=== PATIENT | male | born 1985 | race Caucasian/White ===

== ENCOUNTER 2018-05-11 13:25 | Emergency (ER) | payer OTHER ==
[2018-05-11 13:31] VITALS: TEMP 97; BMI 29.9
--- NOTE | 2018-05-11 13:42 | PDOC ---
Attending Attestation - Resident Resident Name: Heriberto Fraire - HPI HPI: 05/11/18 15:23 pt presents to the ED intoxicated, requesting rehab. Denies fever, but does complain of vomiting and mild epigastric pain consistent with prior episodes of pancreatitis. Patient states that he drinks "one gallon of beer" per day, and that his last drink was immediately prior to arrival. Patient is alert and oriented x 3. - Physicial Exam PE: 05/11/18 15:26 Agree with resident exam. Patient is intoxicated but is alert and oriented x 3 and in no acute distress. Abdomen is soft, non tender and non distended. - Medical Decision Making 05/11/18 15:26 Pt presents to the ED intoxicated requesting rehab. Labs show no evidence of pancreatitis. Patient has been accepted to [facility] for rehab. Will discharge to [facility].
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
[2018-05-11 14:51] LABS: BASO % 0.8 % (0-2.0); EOS % 0.5 % (0-4.5); HEMOGLOBIN 13.9 GM/dL (11.7-16.9); LYMPH % 16.4 % (8-40); MCH 29.1 pg (25.7-33.7); MCHC 32.4 g/dl (32.0-35.9); MONO % 9.4 % (3.8-10.2); NEUT % 72.9 % (42.8-82.8); PLATELET COUNT 236 K/MM3 (134-434); RBC 4.78 M/mm3 (4.00-5.60); RDW 15.3 % (11.9-15.9); WHITE BLOOD COUNT 4.4 K/mm3 (4.0-10.0)
[2018-05-11 15:19] LABS: ALBUMIN 4.1 g/dl (3.4-5.0); ALK PHOS 68 U/L (45-117); ANION GAP 8 MMOL/L (8-16); BILIRUBIN,TOTAL 0.2 mg/dL (0.2-1); BLOOD UREA NITROGEN 6 mg/dL (7-18); CALCIUM 8.9 mg/dL (8.5-10.1); CHLORIDE 104 mmol/L (98-107); CO2 26 mmol/L (21-32); CREATININE 0.7 mg/dL (0.55-1.3); GLUCOSE,RANDOM 114 mg/dL (74-106); LIPASE 121 U/L (73-393); PHOSPHOROUS 3.3 mg/dL (2.5-4.9); POTASSIUM 4.4 mmol/L (3.5-5.1); SGOT/AST 41 U/L (15-37); SGPT/ALT 42 U/L (13-61); SODIUM 137 mmol/L (136-145); TOT PROT 7.6 g/dl (6.4-8.2)
[2018-05-11 15:49] VITALS: BP 125/69; PULSE 98
--- NOTE | 2018-05-11 16:27 | EKG ---
Test Reason : Blood Pressure : / mmHG Vent. Rate : 082 BPM Atrial Rate : 082 BPM P-R Int : 158 ms QRS Dur : 084 ms QT Int : 366 ms P-R-T Axes : 062 036 043 degrees QTc Int : 427 ms NORMAL SINUS RHYTHM NORMAL ECG NO PREVIOUS ECGS AVAILABLE Confirmed by BERTO NARAYAN MD ([id number]) on 05/11/2018 4:27:09 PM Referred By: Confirmed By:BERTO NARAYAN MD
== END 2018-05-11 16:57 | disposition home or self-care (01) ==
LOC: JER 13:25
DX: F10.220 Alcohol dependence with intoxication, uncomplicated (principal); F17.210 Nicotine dependence, cigarettes, uncomplicated; F12.10 Cannabis abuse, uncomplicated; J45.909 Unspecified asthma, uncomplicated
CPT/HCPCS: 36415; 80053; 83690; 84100; 85025; 93005; 93010; 99281-25

== ENCOUNTER 2022-12-21 16:29 | Inpatient (IN) | payer OTHER ==
[2022-12-21 17:34] VITALS: BMI 25.5
[2022-12-21] MEDS ORDERED: BENZOCAINE/MENTHOL (CHLORASEPTIC ) LOZENGE MM PRN (22:09)
[2022-12-21] MEDS ORDERED: BISMUTH SUBSALICYLATE 524 MG/30 ML PO PRN (22:09)
[2022-12-21] MEDS ORDERED: IBUPROFEN 400 MG TABLET (FP) PO PRN (22:09)
[2022-12-21] MEDS ORDERED: LOPERAMIDE HCL 2 MG CAPSULE PO PRN (22:09)
[2022-12-21] MEDS ORDERED: ONDANSETRON *ODT* 4 MG TABLET SL PRN (22:09)
[2022-12-21] MEDS ORDERED: DICYCLOMINE HCL 10 MG CAPSULE PO PRN (22:09)
[2022-12-21] MEDS ORDERED: NALOXONE HCL 0.4 MG/ML VIAL IM PRN (22:09)
[2022-12-21] MEDS ORDERED: NALOXONE HCL (KLOXXADO) 8 MG SPRAY NS PRN (22:09)
[2022-12-21] MEDS ORDERED: MAG HYDROX/AL HYDROX/SIMETH 30 ML UNIT-DOSE CUP PO PRN (22:09)
[2022-12-21] MEDS ORDERED: MAGNESIUM HYDROX 2400MG/30ML ORAL SUSPENSION 30 ML CUP PO PRN (22:09)
[2022-12-21] MEDS ORDERED: BENZONATATE 200 MG CAPSULE PO PRN (22:09)
[2022-12-21] MEDS ORDERED: guaiFENesin 600 MG TABLET.ER (FP) PO PRN (22:09)
[2022-12-21] MEDS ORDERED: POLYETHYLENE GLYCOL (HEALTHYLAX) 3350 17 GM PACKET PO PRN (22:09)
[2022-12-21] MEDS ORDERED: chlordiazePOXIDE HCL 25 MG CAPSULE PO PRN (22:09)
[2022-12-21] MEDS ORDERED: ALBUTEROL SO4 HFA INHALER IH PRN (22:14)
[2022-12-21] MEDS: chlordiazePOXIDE HCL 25 MG CAPSULE PO SCH (23:00)
[2022-12-22] MEDS: chlordiazePOXIDE HCL 25 MG CAPSULE PO SCH ×4 (05:57→22:20)
[2022-12-22] MEDS ORDERED: buPROPion HCL 100 MG TABLET PO SCH (10:00)
[2022-12-22] MEDS: PRENATAL VITAMINS W/ FOLIC ACID TABLET (FP) PO SCH (10:12)
[2022-12-22] MEDS: NICOTINE 21 MG/24 HOURS TOPICAL PATCH TD SCH (10:13)
[2022-12-22] MEDS: buPROPion HCL 100 MG TABLET PO SCH ×2 (12:46→17:43)
[2022-12-22] MEDS: THIAMINE HCL 100 MG TABLET (FP) PO SCH (22:18)
[2022-12-22] MEDS: MELATONIN 5 MG TABLETS PO SCH (22:18)
[2022-12-22] MEDS: hydrOXYzine PAMOATE 25 MG CAPSULE (FP) PO PRN (22:19)
[2022-12-22] MEDS: METHOCARBAMOL 500 MG TABLET PO PRN (22:19)
[2022-12-22] MEDS: ATORVASTATIN CA 40 MG TABLET (FP) PO SCH (22:19)
[2022-12-23] MEDS: chlordiazePOXIDE HCL 25 MG CAPSULE PO SCH ×4 (05:54→22:36)
[2022-12-23] MEDS: NICOTINE 21 MG/24 HOURS TOPICAL PATCH TD SCH (10:39)
[2022-12-23] MEDS: buPROPion HCL 100 MG TABLET PO SCH ×2 (10:39→17:46)
[2022-12-23] MEDS: PRENATAL VITAMINS W/ FOLIC ACID TABLET (FP) PO SCH (10:39)
[2022-12-23] MEDS ORDERED: P-EPHED 60MG/TRIPROLIDI 2.5MG TABLET PO PRN (11:32)
[2022-12-23 12:09] LABS: HEMATOCRIT 37.2 % (35.4-49); HEMOGLOBIN 12.2 GM/dL (11.7-16.9); MCH 31.4 pg (25.7-33.7); MCHC 32.7 g/dl (32.0-35.9); MEAN CELL VOLUME 96.2 fl (80-96); MEAN PLT VOLUME 8.6 fl (7.5-11.1); PLATELET COUNT 163 10^3/uL (134-434); RBC 3.87 M/mm3 (4.00-5.60); RDW 12.8 % (11.9-15.9); WHITE BLOOD COUNT 5.6 K/mm3 (4.0-10.0)
[2022-12-23 12:28] LABS: CALCIUM 8.3 mg/dL (8.5-10.1)
[2022-12-23 12:29] LABS: ALBUMIN 3.2 g/dl (3.4-5.0); BLOOD UREA NITROGEN 9.6 mg/dL (7-18)
[2022-12-23 12:32] LABS: CREATININE 0.7 mg/dL (0.55-1.3)
[2022-12-23 12:33] LABS: TOT PROT 6.2 g/dl (6.4-8.2)
[2022-12-23 12:34] LABS: BILIRUBIN,TOTAL 0.4 mg/dL (0.2-1)
[2022-12-23] MEDS: FENOFIBRIC ACID 135 MG CAP PO SCH (17:00)
[2022-12-23] MEDS: ACETAMINOPHEN 325 MG TABLET (FP) PO PRN (19:05)
[2022-12-23] MEDS: THIAMINE HCL 100 MG TABLET (FP) PO SCH (22:36)
[2022-12-23] MEDS: ATORVASTATIN CA 40 MG TABLET (FP) PO SCH (22:36)
[2022-12-23] MEDS: MELATONIN 5 MG TABLETS PO SCH (22:36)
[2022-12-24] MEDS ORDERED: chlordiazePOXIDE HCL 10 MG CAPSULE PO PRN
[2022-12-24] MEDS: METHOCARBAMOL 500 MG TABLET PO PRN ×2 (00:04→21:43)
[2022-12-24] MEDS: chlordiazePOXIDE HCL 10 MG CAPSULE PO SCH ×4 (05:07→22:09)
[2022-12-24] MEDS: IBUPROFEN 600 MG TABLET (FP) PO PRN ×2 (05:08→17:02)
[2022-12-24] MEDS: PRENATAL VITAMINS W/ FOLIC ACID TABLET (FP) PO SCH (10:21)
[2022-12-24] MEDS: FENOFIBRIC ACID 135 MG CAP PO SCH (10:21)
[2022-12-24] MEDS: NICOTINE 21 MG/24 HOURS TOPICAL PATCH TD SCH (10:21)
[2022-12-24] MEDS: buPROPion HCL 100 MG TABLET PO SCH ×2 (10:22→17:02)
[2022-12-24] MEDS: hydrOXYzine PAMOATE 25 MG CAPSULE (FP) PO PRN (17:02)
[2022-12-24] MEDS: MELATONIN 5 MG TABLETS PO SCH (21:42)
[2022-12-24] MEDS: ATORVASTATIN CA 40 MG TABLET (FP) PO SCH (21:42)
[2022-12-24] MEDS: THIAMINE HCL 100 MG TABLET (FP) PO SCH (21:43)
[2022-12-24] MEDS: ACETAMINOPHEN 325 MG TABLET (FP) PO PRN (21:44)
[2022-12-25] MEDS: chlordiazePOXIDE HCL 10 MG CAPSULE PO SCH ×2 (05:52→17:11)
[2022-12-25] MEDS: PRENATAL VITAMINS W/ FOLIC ACID TABLET (FP) PO SCH (10:28)
[2022-12-25] MEDS: NICOTINE 21 MG/24 HOURS TOPICAL PATCH TD SCH (10:28)
[2022-12-25] MEDS: buPROPion HCL 100 MG TABLET PO SCH ×2 (10:28→17:11)
[2022-12-25] MEDS: FENOFIBRIC ACID 135 MG CAP PO SCH (10:28)
[2022-12-25] MEDS: METHOCARBAMOL 500 MG TABLET PO PRN (10:52)
[2022-12-25] MEDS: ACETAMINOPHEN 325 MG TABLET (FP) PO PRN ×2 (10:52→23:55)
[2022-12-25] MEDS: hydrOXYzine PAMOATE 25 MG CAPSULE (FP) PO PRN (10:52)
[2022-12-25] MEDS: THIAMINE HCL 100 MG TABLET (FP) PO SCH (22:22)
[2022-12-25] MEDS: ATORVASTATIN CA 40 MG TABLET (FP) PO SCH (22:22)
[2022-12-25] MEDS: MELATONIN 5 MG TABLETS PO SCH (22:22)
[2022-12-26] MEDS ORDERED: chlordiazePOXIDE HCL 10 MG CAPSULE PO ONE (05:00)
[2022-12-26] MEDS: METHOCARBAMOL 500 MG TABLET PO PRN (05:42)
[2022-12-26] MEDS: ACETAMINOPHEN 325 MG TABLET (FP) PO PRN (05:42)
[2022-12-26] MEDS: buPROPion HCL 100 MG TABLET PO SCH (11:00)
[2022-12-26] MEDS: NICOTINE 21 MG/24 HOURS TOPICAL PATCH TD SCH (11:00)
[2022-12-26] MEDS: PRENATAL VITAMINS W/ FOLIC ACID TABLET (FP) PO SCH (11:00)
[2022-12-26] MEDS: FENOFIBRIC ACID 135 MG CAP PO SCH (11:00)
[2022-12-26 13:27] VITALS: BP 107/63; PULSE 84; RESP 20; TEMP 97.9
== END 2022-12-26 16:10 | disposition other institution (70) | DRG 773 ==
LOC: YASAS 16:29 → Y3N 22:23
PROVIDERS: ADMIT Allergy & Immunology; ATTEND Allergy & Immunology
PROC: HZ2ZZZZ Detoxification Services for Substance Abuse Treatment (ICD-10-PCS; principal; 2022-12-21)
DX: F11.23 Opioid dependence with withdrawal (principal); F10.230 Alcohol dependence with withdrawal, uncomplicated; F17.210 Nicotine dependence, cigarettes, uncomplicated; F41.9 Anxiety disorder, unspecified; F32.A Depression, unspecified; F43.10 Post-traumatic stress disorder, unspecified; U07.1 COVID-19; E78.00 Pure hypercholesterolemia, unspecified; J45.30 Mild persistent asthma, uncomplicated; Z86.59 Personal history of other mental and behavioral disorders; Z87.19 Personal history of other diseases of the digestive system
CPT/HCPCS: 0241U-QW; 36415; 80053; 85027; 86780; 87635; 93005; 93010

== ENCOUNTER 2023-01-15 10:06 | Inpatient (IN) | payer OTHER ==
[2023-01-15 10:27] VITALS: BMI 27.7
[2023-01-15] MEDS ORDERED: POLYETHYLENE GLYCOL (HEALTHYLAX) 3350 17 GM PACKET PO PRN (10:54)
[2023-01-15] MEDS ORDERED: BENZOCAINE/MENTHOL (CHLORASEPTIC ) LOZENGE MM PRN (10:54)
[2023-01-15] MEDS ORDERED: NALOXONE HCL 0.4 MG/ML VIAL IM PRN (10:54)
[2023-01-15] MEDS ORDERED: MAGNESIUM HYDROX 2400MG/30ML ORAL SUSPENSION 30 ML CUP PO PRN (10:54)
[2023-01-15] MEDS ORDERED: NALOXONE HCL (KLOXXADO) 8 MG SPRAY NS PRN (10:54)
[2023-01-15] MEDS ORDERED: BENZONATATE 200 MG CAPSULE PO PRN (10:54)
[2023-01-15] MEDS ORDERED: NICOTINE POLACRILEX 2 MG GUM BUC PRN (10:54)
[2023-01-15] MEDS ORDERED: LOPERAMIDE HCL 2 MG CAPSULE PO PRN (10:54)
[2023-01-15] MEDS ORDERED: ONDANSETRON *ODT* 4 MG TABLET SL PRN (10:54)
[2023-01-15] MEDS ORDERED: BISMUTH SUBSALICYLATE 524 MG/30 ML PO PRN (10:54)
[2023-01-15] MEDS ORDERED: DICYCLOMINE HCL 10 MG CAPSULE PO PRN (10:54)
[2023-01-15] MEDS ORDERED: guaiFENesin 600 MG TABLET.ER (FP) PO PRN (10:54)
[2023-01-15] MEDS ORDERED: MAG HYDROX/AL HYDROX/SIMETH 30 ML UNIT-DOSE CUP PO PRN (10:54)
[2023-01-15] MEDS ORDERED: chlordiazePOXIDE HCL 25 MG CAPSULE PO PRN (11:00)
[2023-01-15] MEDS ORDERED: ONDANSETRON *ODT* 4 MG TABLET ONE (11:17)
[2023-01-15] MEDS: chlordiazePOXIDE HCL 25 MG CAPSULE PO SCH ×3 (11:20→22:11)
[2023-01-15] MEDS: METHOCARBAMOL 500 MG TABLET PO PRN (11:21)
[2023-01-15] MEDS ORDERED: METHOCARBAMOL 500 MG TABLET ONE (11:47)
[2023-01-15] MEDS ORDERED: chlordiazePOXIDE HCL 25 MG CAPSULE ONE (11:48)
[2023-01-15] MEDS: ACETAMINOPHEN 325 MG TABLET (FP) PO PRN ×2 (14:08→22:10)
[2023-01-15] MEDS: THIAMINE HCL 100 MG TABLET (FP) PO SCH (22:10)
[2023-01-15] MEDS: MELATONIN 5 MG TABLETS PO SCH (22:10)
[2023-01-15] MEDS: hydrOXYzine PAMOATE 25 MG CAPSULE (FP) PO PRN (22:10)
[2023-01-16] MEDS: chlordiazePOXIDE HCL 25 MG CAPSULE PO SCH ×2 (05:45→10:41)
[2023-01-16 09:42] LABS: POTASSIUM 4.8 mmol/L (3.5-5.1)
[2023-01-16 09:45] LABS: ALBUMIN 3.4 g/dl (3.4-5.0)
[2023-01-16 09:48] LABS: CREATININE 0.9 mg/dL (0.55-1.3)
[2023-01-16 09:50] LABS: BILIRUBIN,TOTAL 1.1 mg/dL (0.2-1)
[2023-01-16 10:37] LABS: HEMATOCRIT 39.4 % (35.4-49); HEMOGLOBIN 13.9 GM/dL (11.7-16.9); MCH 32.6 pg (25.7-33.7); MCHC 35.3 g/dl (32.0-35.9); MEAN CELL VOLUME 92.5 fl (80-96); MEAN PLT VOLUME 12.5 fl (7.5-11.1); PLATELET COUNT 118 10^3/uL (134-434); RBC 4.26 M/mm3 (4.00-5.60); WHITE BLOOD COUNT 3.2 K/mm3 (4.0-10.0)
[2023-01-16] MEDS: PRENATAL VITAMINS W/ FOLIC ACID TABLET (FP) PO SCH (10:41)
[2023-01-16] MEDS: NICOTINE 21 MG/24 HOURS TOPICAL PATCH TD SCH (10:42)
[2023-01-16 10:43] LABS: BLOOD UREA NITROGEN 11.6 mg/dL (7-18); CALCIUM 7.2 mg/dL (8.5-10.1); TOT PROT 7.2 g/dl (6.4-8.2)
[2023-01-16] MEDS: IBUPROFEN 600 MG TABLET (FP) PO PRN (12:40)
[2023-01-16] MEDS ORDERED: LORazepam 1 MG TABLET PO PRN (14:56)
[2023-01-16] MEDS: LORazepam 2 MG TABLET PO SCH ×2 (17:28→22:54)
[2023-01-16] MEDS: THIAMINE HCL 100 MG TABLET (FP) PO SCH (22:54)
[2023-01-16] MEDS: IBUPROFEN 400 MG TABLET (FP) PO PRN (22:54)
[2023-01-16] MEDS: MELATONIN 5 MG TABLETS PO SCH (22:54)
[2023-01-17] MEDS ORDERED: chlordiazePOXIDE HCL 25 MG CAPSULE PO SCH (05:00)
[2023-01-17] MEDS: LORazepam 2 MG TABLET PO SCH ×4 (05:42→22:11)
[2023-01-17] MEDS ORDERED: ALBUTEROL SO4 HFA INHALER IH PRN (08:19)
[2023-01-17] MEDS: PRENATAL VITAMINS W/ FOLIC ACID TABLET (FP) PO SCH (10:27)
[2023-01-17] MEDS: FENOFIBRIC ACID 135 MG CAP PO SCH (10:27)
[2023-01-17] MEDS: NICOTINE 21 MG/24 HOURS TOPICAL PATCH TD SCH (10:28)
[2023-01-17] MEDS: IBUPROFEN 400 MG TABLET (FP) PO PRN (13:46)
[2023-01-17] MEDS: METHOCARBAMOL 500 MG TABLET PO PRN (13:46)
[2023-01-17] MEDS: hydrOXYzine PAMOATE 25 MG CAPSULE (FP) PO PRN (18:02)
[2023-01-17] MEDS: THIAMINE HCL 100 MG TABLET (FP) PO SCH (22:10)
[2023-01-17] MEDS: ATORVASTATIN CA 40 MG TABLET (FP) PO SCH (22:10)
[2023-01-17] MEDS: MELATONIN 5 MG TABLETS PO SCH (22:10)
[2023-01-17] MEDS: DIVALPROEX SODIUM 500 MG TABLET E.C. PO SCH (22:10)
[2023-01-17] MEDS: IBUPROFEN 600 MG TABLET (FP) PO PRN (22:12)
[2023-01-18] MEDS ORDERED: LORazepam 0.5 MG TABLET PO PRN
[2023-01-18] MEDS ORDERED: chlordiazePOXIDE HCL 10 MG CAPSULE PO PRN
[2023-01-18] MEDS ORDERED: chlordiazePOXIDE HCL 10 MG CAPSULE PO SCH (05:00)
[2023-01-18] MEDS: LORazepam 1 MG TABLET PO SCH ×4 (05:38→22:19)
[2023-01-18] MEDS: METHOCARBAMOL 500 MG TABLET PO PRN ×3 (05:40→22:19)
[2023-01-18 09:40] LABS: POTASSIUM 4.8 mmol/L (3.5-5.1)
[2023-01-18 09:43] LABS: HEMATOCRIT 37.8 % (35.4-49); HEMOGLOBIN 11.8 GM/dL (11.7-16.9); MCH 29.8 pg (25.7-33.7); MCHC 31.3 g/dl (32.0-35.9); MEAN CELL VOLUME 95.1 fl (80-96); MEAN PLT VOLUME 9.5 fl (7.5-11.1); PLATELET COUNT 74 10^3/uL (134-434); RBC 3.97 M/mm3 (4.00-5.60); RDW 13.5 % (11.9-15.9); WHITE BLOOD COUNT 2.9 K/mm3 (4.0-10.0)
[2023-01-18 09:46] LABS: BLOOD UREA NITROGEN 8.3 mg/dL (7-18)
[2023-01-18 09:48] LABS: CREATININE 0.7 mg/dL (0.55-1.3)
[2023-01-18 09:50] LABS: CALCIUM 8.6 mg/dL (8.5-10.1)
[2023-01-18] MEDS: DIVALPROEX SODIUM 500 MG TABLET E.C. PO SCH ×2 (10:44→22:18)
[2023-01-18] MEDS: PRENATAL VITAMINS W/ FOLIC ACID TABLET (FP) PO SCH (10:44)
[2023-01-18] MEDS: IBUPROFEN 400 MG TABLET (FP) PO PRN (10:45)
[2023-01-18] MEDS: NICOTINE 21 MG/24 HOURS TOPICAL PATCH TD SCH (10:45)
[2023-01-18] MEDS: FENOFIBRIC ACID 135 MG CAP PO SCH (11:20)
[2023-01-18] MEDS: MELATONIN 5 MG TABLETS PO SCH (22:18)
[2023-01-18] MEDS: ATORVASTATIN CA 40 MG TABLET (FP) PO SCH (22:18)
[2023-01-18] MEDS: THIAMINE HCL 100 MG TABLET (FP) PO SCH (22:19)
[2023-01-18] MEDS: hydrOXYzine PAMOATE 25 MG CAPSULE (FP) PO PRN (22:19)
[2023-01-18] MEDS: IBUPROFEN 600 MG TABLET (FP) PO PRN (22:22)
[2023-01-19] MEDS ORDERED: chlordiazePOXIDE HCL 10 MG CAPSULE PO SCH (05:00)
[2023-01-19] MEDS: LORazepam 0.5 MG TABLET PO SCH ×4 (05:29→22:23)
[2023-01-19] MEDS: IBUPROFEN 400 MG TABLET (FP) PO PRN ×2 (05:31→22:26)
[2023-01-19] MEDS: METHOCARBAMOL 500 MG TABLET PO PRN ×2 (05:31→22:27)
[2023-01-19] MEDS: FENOFIBRIC ACID 135 MG CAP PO SCH (10:46)
[2023-01-19] MEDS: NICOTINE 21 MG/24 HOURS TOPICAL PATCH TD SCH (10:47)
[2023-01-19] MEDS: DIVALPROEX SODIUM 500 MG TABLET E.C. PO SCH ×2 (10:47→22:23)
[2023-01-19] MEDS: PRENATAL VITAMINS W/ FOLIC ACID TABLET (FP) PO SCH (10:47)
[2023-01-19] MEDS: MELATONIN 5 MG TABLETS PO SCH (22:23)
[2023-01-19] MEDS: ATORVASTATIN CA 40 MG TABLET (FP) PO SCH (22:23)
[2023-01-19] MEDS: THIAMINE HCL 100 MG TABLET (FP) PO SCH (22:24)
[2023-01-20] MEDS ORDERED: chlordiazePOXIDE HCL 10 MG CAPSULE PO ONE (05:00)
[2023-01-20] MEDS: LORazepam 0.5 MG TABLET PO SCH (05:38)
[2023-01-20] MEDS: METHOCARBAMOL 500 MG TABLET PO PRN (05:39)
[2023-01-20 09:10] VITALS: RESP 17
[2023-01-20] MEDS: FENOFIBRIC ACID 135 MG CAP PO SCH (10:12)
[2023-01-20] MEDS: DIVALPROEX SODIUM 500 MG TABLET E.C. PO SCH (10:12)
[2023-01-20] MEDS: PRENATAL VITAMINS W/ FOLIC ACID TABLET (FP) PO SCH (10:12)
[2023-01-20] MEDS: NICOTINE 21 MG/24 HOURS TOPICAL PATCH TD SCH (10:13)
[2023-01-20 12:37] VITALS: BP 102/61; PULSE 71; TEMP 97.8
== END 2023-01-20 16:41 | disposition other institution (70) | DRG 775 ==
LOC: YASAS 10:06 → Y3N 11:33
PROVIDERS: ADMIT Allergy & Immunology; ATTEND Surgery
PROC: HZ2ZZZZ Detoxification Services for Substance Abuse Treatment (ICD-10-PCS; principal; 2023-01-15)
DX: F10.230 Alcohol dependence with withdrawal, uncomplicated (principal); F12.20 Cannabis dependence, uncomplicated; F17.210 Nicotine dependence, cigarettes, uncomplicated; F31.9 Bipolar disorder, unspecified; F41.8 Other specified anxiety disorders; F43.10 Post-traumatic stress disorder, unspecified; E78.5 Hyperlipidemia, unspecified; J45.30 Mild persistent asthma, uncomplicated; R74.01 Elevation of levels of liver transaminase levels; Z86.16 Personal history of COVID-19; Z87.19 Personal history of other diseases of the digestive system; Z56.0 Unemployment, unspecified; Z59.01 Sheltered homelessness
CPT/HCPCS: 36415; 80048; 80053; 85027; 86780; 87635; Q0162

== ENCOUNTER 2023-01-20 17:10 | Inpatient (IN) | payer OTHER ==
[2023-01-20] MEDS ORDERED: BENZOCAINE/MENTHOL (CHLORASEPTIC ) LOZENGE MM PRN (18:58)
[2023-01-20] MEDS ORDERED: MAGNESIUM HYDROX 2400MG/30ML ORAL SUSPENSION 30 ML CUP PO PRN (18:58)
[2023-01-20] MEDS ORDERED: guaiFENesin 600 MG TABLET.ER (FP) PO PRN (18:58)
[2023-01-20] MEDS ORDERED: AMMONIUM LACTATE 12% LOTION 225 GM BOTTLE TP PRN (18:58)
[2023-01-20] MEDS ORDERED: MAG HYDROX/AL HYDROX/SIMETH 30 ML UNIT-DOSE CUP PO PRN (18:58)
[2023-01-20] MEDS ORDERED: ACETAMINOPHEN 325 MG TABLET (FP) PO PRN (18:58)
[2023-01-20] MEDS ORDERED: COLLOIDAL OATMEAL 1 BAR EACH TP PRN (18:58)
[2023-01-20] MEDS ORDERED: BENZONATATE 200 MG CAPSULE PO PRN (18:58)
[2023-01-20] MEDS ORDERED: POLYETHYLENE GLYCOL (HEALTHYLAX) 3350 17 GM PACKET PO PRN (18:58)
[2023-01-20] MEDS ORDERED: P-EPHED 60MG/TRIPROLIDI 2.5MG TABLET PO PRN (18:58)
[2023-01-20] MEDS ORDERED: LOPERAMIDE HCL 2 MG CAPSULE PO PRN (18:58)
[2023-01-20] MEDS: ATORVASTATIN CA 40 MG TABLET (FP) PO SCH (21:09)
[2023-01-20] MEDS: METHOCARBAMOL 500 MG TABLET PO PRN (21:09)
[2023-01-20] MEDS: DIVALPROEX SODIUM 500 MG TABLET E.C. PO SCH (21:09)
[2023-01-20] MEDS: MELATONIN 5 MG TABLETS PO SCH (21:09)
[2023-01-20] MEDS: THIAMINE HCL 100 MG TABLET (FP) PO SCH (21:09)
[2023-01-21] MEDS: DIVALPROEX SODIUM 500 MG TABLET E.C. PO SCH ×2 (09:44→21:06)
[2023-01-21] MEDS: PRENATAL VITAMINS W/ FOLIC ACID TABLET (FP) PO SCH (09:44)
[2023-01-21] MEDS: FENOFIBRIC ACID 135 MG CAP PO SCH (09:45)
[2023-01-21] MEDS: METHOCARBAMOL 500 MG TABLET PO PRN ×2 (09:46→21:06)
[2023-01-21 12:00] LABS: ALBUMIN 3.9 g/dl (3.4-5.0)
[2023-01-21] MEDS ORDERED: PNEUMOC 20-VAL CONJ-DIP CRM/PF 0.5 ML SYRINGE IM ONE (12:00)
[2023-01-21 12:01] LABS: BILIRUBIN,DIRECT 0.2 mg/dL (0.0-0.2)
[2023-01-21 12:04] LABS: BILIRUBIN,TOTAL 0.3 mg/dL (0.2-1); TOT PROT 7.5 g/dl (6.4-8.2)
[2023-01-21] MEDS: NICOTINE 21 MG/24 HOURS TOPICAL PATCH TD SCH (14:34)
[2023-01-21] MEDS: ATORVASTATIN CA 40 MG TABLET (FP) PO SCH (21:06)
[2023-01-21] MEDS: THIAMINE HCL 100 MG TABLET (FP) PO SCH (21:06)
[2023-01-21] MEDS: IBUPROFEN 400 MG TABLET (FP) PO PRN (21:06)
[2023-01-21] MEDS: MELATONIN 5 MG TABLETS PO SCH (21:06)
[2023-01-22] MEDS: IBUPROFEN 600 MG TABLET (FP) PO PRN ×2 (06:53→21:09)
[2023-01-22] MEDS: hydrOXYzine PAMOATE 25 MG CAPSULE (FP) PO PRN ×2 (08:12→21:09)
[2023-01-22] MEDS: NICOTINE 21 MG/24 HOURS TOPICAL PATCH TD SCH (09:41)
[2023-01-22] MEDS: FENOFIBRIC ACID 135 MG CAP PO SCH (09:41)
[2023-01-22] MEDS: PRENATAL VITAMINS W/ FOLIC ACID TABLET (FP) PO SCH (09:41)
[2023-01-22] MEDS: DIVALPROEX SODIUM 500 MG TABLET E.C. PO SCH ×2 (09:42→21:08)
[2023-01-22] MEDS: METHOCARBAMOL 500 MG TABLET PO PRN ×2 (09:43→21:08)
[2023-01-22] MEDS: THIAMINE HCL 100 MG TABLET (FP) PO SCH (21:08)
[2023-01-22] MEDS: MELATONIN 5 MG TABLETS PO SCH (21:08)
[2023-01-22] MEDS: ATORVASTATIN CA 40 MG TABLET (FP) PO SCH (21:09)
[2023-01-23] MEDS: FENOFIBRIC ACID 135 MG CAP PO SCH (09:44)
[2023-01-23] MEDS: PRENATAL VITAMINS W/ FOLIC ACID TABLET (FP) PO SCH (09:44)
[2023-01-23] MEDS: DIVALPROEX SODIUM 500 MG TABLET E.C. PO SCH ×2 (09:44→21:04)
[2023-01-23] MEDS: NICOTINE 21 MG/24 HOURS TOPICAL PATCH TD SCH (09:45)
[2023-01-23] MEDS: hydrOXYzine PAMOATE 25 MG CAPSULE (FP) PO PRN ×2 (09:46→21:03)
[2023-01-23] MEDS: MELATONIN 5 MG TABLETS PO SCH (21:03)
[2023-01-23] MEDS: ATORVASTATIN CA 40 MG TABLET (FP) PO SCH (21:04)
[2023-01-23] MEDS: THIAMINE HCL 100 MG TABLET (FP) PO SCH (21:04)
[2023-01-23] MEDS: METHOCARBAMOL 500 MG TABLET PO PRN (21:05)
[2023-01-23] MEDS: IBUPROFEN 600 MG TABLET (FP) PO PRN (21:05)
[2023-01-24] MEDS: PRENATAL VITAMINS W/ FOLIC ACID TABLET (FP) PO SCH (09:54)
[2023-01-24] MEDS: NICOTINE 21 MG/24 HOURS TOPICAL PATCH TD SCH (09:54)
[2023-01-24] MEDS: DIVALPROEX SODIUM 500 MG TABLET E.C. PO SCH ×2 (09:54→21:13)
[2023-01-24] MEDS: FENOFIBRIC ACID 135 MG CAP PO SCH (09:56)
[2023-01-24] MEDS: hydrOXYzine PAMOATE 25 MG CAPSULE (FP) PO PRN ×2 (09:56→21:13)
[2023-01-24] MEDS ORDERED: MELATONIN 5 MG TABLETS PO SCH (10:10)
[2023-01-24] MEDS: THIAMINE HCL 100 MG TABLET (FP) PO SCH (21:13)
[2023-01-24] MEDS: ATORVASTATIN CA 40 MG TABLET (FP) PO SCH (21:13)
[2023-01-24] MEDS: SUVOREXANT 10 MG TABLET PO PRN (21:16)
[2023-01-24] MEDS: IBUPROFEN 600 MG TABLET (FP) PO PRN (21:16)
[2023-01-24] MEDS: METHOCARBAMOL 500 MG TABLET PO PRN (21:17)
[2023-01-25] MEDS: PRENATAL VITAMINS W/ FOLIC ACID TABLET (FP) PO SCH (10:00)
[2023-01-25] MEDS: DIVALPROEX SODIUM 500 MG TABLET E.C. PO SCH ×2 (10:00→21:09)
[2023-01-25] MEDS: NICOTINE 21 MG/24 HOURS TOPICAL PATCH TD SCH (10:00)
[2023-01-25] MEDS: FENOFIBRIC ACID 135 MG CAP PO SCH (10:01)
[2023-01-25] MEDS: LACTULOSE 20 GM/30 ML UDC (FOR ORAL USE ONLY) PO SCH ×2 (12:11→21:09)
[2023-01-25] MEDS: hydrOXYzine PAMOATE 25 MG CAPSULE (FP) PO PRN (15:56)
[2023-01-25] MEDS: SUVOREXANT 10 MG TABLET PO PRN (21:09)
[2023-01-25] MEDS: ATORVASTATIN CA 40 MG TABLET (FP) PO SCH (21:09)
[2023-01-25] MEDS: THIAMINE HCL 100 MG TABLET (FP) PO SCH (21:09)
[2023-01-25] MEDS: METHOCARBAMOL 500 MG TABLET PO PRN (21:10)
[2023-01-26] MEDS: PRENATAL VITAMINS W/ FOLIC ACID TABLET (FP) PO SCH (09:32)
[2023-01-26] MEDS: LACTULOSE 20 GM/30 ML UDC (FOR ORAL USE ONLY) PO SCH ×2 (09:32→21:06)
[2023-01-26] MEDS: NICOTINE 21 MG/24 HOURS TOPICAL PATCH TD SCH (09:32)
[2023-01-26] MEDS: DIVALPROEX SODIUM 500 MG TABLET E.C. PO SCH ×2 (09:33→21:06)
[2023-01-26] MEDS: FENOFIBRIC ACID 135 MG CAP PO SCH (09:33)
[2023-01-26] MEDS: hydrOXYzine PAMOATE 25 MG CAPSULE (FP) PO PRN ×2 (09:33→21:05)
[2023-01-26] MEDS: THIAMINE HCL 100 MG TABLET (FP) PO SCH (21:03)
[2023-01-26] MEDS: IBUPROFEN 600 MG TABLET (FP) PO PRN (21:05)
[2023-01-26] MEDS: ATORVASTATIN CA 40 MG TABLET (FP) PO SCH (21:06)
[2023-01-27] MEDS: FENOFIBRIC ACID 135 MG CAP PO SCH (09:49)
[2023-01-27] MEDS: NICOTINE 21 MG/24 HOURS TOPICAL PATCH TD SCH (09:49)
[2023-01-27] MEDS: PRENATAL VITAMINS W/ FOLIC ACID TABLET (FP) PO SCH (09:49)
[2023-01-27] MEDS: DIVALPROEX SODIUM 500 MG TABLET E.C. PO SCH ×2 (09:49→21:41)
[2023-01-27] MEDS: hydrOXYzine PAMOATE 25 MG CAPSULE (FP) PO PRN ×2 (09:50→21:43)
[2023-01-27] MEDS: LACTULOSE 20 GM/30 ML UDC (FOR ORAL USE ONLY) PO SCH ×2 (09:50→21:41)
[2023-01-27] MEDS: THIAMINE HCL 100 MG TABLET (FP) PO SCH (21:41)
[2023-01-27] MEDS: ATORVASTATIN CA 40 MG TABLET (FP) PO SCH (21:41)
[2023-01-27] MEDS: IBUPROFEN 400 MG TABLET (FP) PO PRN (21:42)
[2023-01-27] MEDS: SUVOREXANT 10 MG TABLET PO PRN (21:44)
[2023-01-28] MEDS: FENOFIBRIC ACID 135 MG CAP PO SCH (09:45)
[2023-01-28] MEDS: PRENATAL VITAMINS W/ FOLIC ACID TABLET (FP) PO SCH (09:45)
[2023-01-28] MEDS: NICOTINE 21 MG/24 HOURS TOPICAL PATCH TD SCH (09:46)
[2023-01-28] MEDS: DIVALPROEX SODIUM 500 MG TABLET E.C. PO SCH ×2 (09:46→21:12)
[2023-01-28] MEDS: hydrOXYzine PAMOATE 25 MG CAPSULE (FP) PO PRN ×2 (09:47→18:01)
[2023-01-28] MEDS: LACTULOSE 20 GM/30 ML UDC (FOR ORAL USE ONLY) PO SCH ×2 (09:47→21:12)
[2023-01-28] MEDS: IBUPROFEN 600 MG TABLET (FP) PO PRN (18:37)
[2023-01-28] MEDS: THIAMINE HCL 100 MG TABLET (FP) PO SCH (21:11)
[2023-01-28] MEDS: ATORVASTATIN CA 40 MG TABLET (FP) PO SCH (21:12)
[2023-01-29] MEDS: FENOFIBRIC ACID 135 MG CAP PO SCH (09:48)
[2023-01-29] MEDS: NICOTINE 21 MG/24 HOURS TOPICAL PATCH TD SCH (09:48)
[2023-01-29] MEDS: DIVALPROEX SODIUM 500 MG TABLET E.C. PO SCH ×2 (09:48→21:05)
[2023-01-29] MEDS: LACTULOSE 20 GM/30 ML UDC (FOR ORAL USE ONLY) PO SCH ×2 (09:48→21:06)
[2023-01-29] MEDS: PRENATAL VITAMINS W/ FOLIC ACID TABLET (FP) PO SCH (09:48)
[2023-01-29] MEDS: hydrOXYzine PAMOATE 25 MG CAPSULE (FP) PO PRN ×2 (09:48→18:38)
[2023-01-29] MEDS: IBUPROFEN 600 MG TABLET (FP) PO PRN ×2 (09:49→18:38)
[2023-01-29] MEDS: THIAMINE HCL 100 MG TABLET (FP) PO SCH (21:04)
[2023-01-29] MEDS: ATORVASTATIN CA 40 MG TABLET (FP) PO SCH (21:05)
[2023-01-29] MEDS: SUVOREXANT 10 MG TABLET PO PRN (21:06)
[2023-01-30] MEDS: DIVALPROEX SODIUM 500 MG TABLET E.C. PO SCH ×2 (10:05→21:06)
[2023-01-30] MEDS: LACTULOSE 20 GM/30 ML UDC (FOR ORAL USE ONLY) PO SCH ×2 (10:05→21:06)
[2023-01-30] MEDS: PRENATAL VITAMINS W/ FOLIC ACID TABLET (FP) PO SCH (10:05)
[2023-01-30] MEDS: NICOTINE 21 MG/24 HOURS TOPICAL PATCH TD SCH (10:06)
[2023-01-30] MEDS: FENOFIBRIC ACID 135 MG CAP PO SCH (10:06)
[2023-01-30] MEDS: hydrOXYzine PAMOATE 25 MG CAPSULE (FP) PO PRN ×2 (10:07→18:29)
[2023-01-30] MEDS: IBUPROFEN 600 MG TABLET (FP) PO PRN (18:29)
[2023-01-30] MEDS: THIAMINE HCL 100 MG TABLET (FP) PO SCH (21:06)
[2023-01-30] MEDS: ATORVASTATIN CA 40 MG TABLET (FP) PO SCH (21:06)
[2023-01-30] MEDS: SUVOREXANT 10 MG TABLET PO PRN (21:07)
[2023-01-31] MEDS: PRENATAL VITAMINS W/ FOLIC ACID TABLET (FP) PO SCH (09:57)
[2023-01-31] MEDS: FENOFIBRIC ACID 135 MG CAP PO SCH (09:58)
[2023-01-31] MEDS: LACTULOSE 20 GM/30 ML UDC (FOR ORAL USE ONLY) PO SCH ×2 (09:58→21:07)
[2023-01-31] MEDS: DIVALPROEX SODIUM 500 MG TABLET E.C. PO SCH ×2 (09:58→21:06)
[2023-01-31] MEDS: NICOTINE 21 MG/24 HOURS TOPICAL PATCH TD SCH (09:58)
[2023-01-31] MEDS: hydrOXYzine PAMOATE 25 MG CAPSULE (FP) PO PRN ×2 (09:59→18:23)
[2023-01-31] MEDS: IBUPROFEN 600 MG TABLET (FP) PO PRN (18:23)
[2023-01-31] MEDS: THIAMINE HCL 100 MG TABLET (FP) PO SCH (21:07)
[2023-01-31] MEDS: SUVOREXANT 10 MG TABLET PO PRN (21:07)
[2023-01-31] MEDS: ATORVASTATIN CA 40 MG TABLET (FP) PO SCH (21:07)
[2023-01-31] MEDS: RIFAXIMIN 550 MG TABLET PO SCH (21:07)
[2023-02-01] MEDS: FENOFIBRIC ACID 135 MG CAP PO SCH (09:42)
[2023-02-01] MEDS: RIFAXIMIN 550 MG TABLET PO SCH ×2 (09:42→21:09)
[2023-02-01] MEDS: LACTULOSE 20 GM/30 ML UDC (FOR ORAL USE ONLY) PO SCH ×2 (09:42→21:09)
[2023-02-01] MEDS: PRENATAL VITAMINS W/ FOLIC ACID TABLET (FP) PO SCH (09:43)
[2023-02-01] MEDS: DIVALPROEX SODIUM 500 MG TABLET E.C. PO SCH ×2 (09:43→21:09)
[2023-02-01] MEDS: NICOTINE 21 MG/24 HOURS TOPICAL PATCH TD SCH (09:45)
[2023-02-01] MEDS: hydrOXYzine PAMOATE 25 MG CAPSULE (FP) PO PRN ×2 (09:45→18:50)
[2023-02-01] MEDS: IBUPROFEN 600 MG TABLET (FP) PO PRN (18:50)
[2023-02-01] MEDS: ATORVASTATIN CA 40 MG TABLET (FP) PO SCH (21:09)
[2023-02-01] MEDS: THIAMINE HCL 100 MG TABLET (FP) PO SCH (21:09)
[2023-02-01] MEDS: SUVOREXANT 10 MG TABLET PO PRN (21:09)
[2023-02-02] MEDS: DIVALPROEX SODIUM 500 MG TABLET E.C. PO SCH ×2 (09:50→21:24)
[2023-02-02] MEDS: RIFAXIMIN 550 MG TABLET PO SCH ×2 (09:50→21:24)
[2023-02-02] MEDS: PRENATAL VITAMINS W/ FOLIC ACID TABLET (FP) PO SCH (09:50)
[2023-02-02] MEDS: LACTULOSE 20 GM/30 ML UDC (FOR ORAL USE ONLY) PO SCH ×2 (09:50→21:23)
[2023-02-02] MEDS: NICOTINE 21 MG/24 HOURS TOPICAL PATCH TD SCH (09:51)
[2023-02-02] MEDS: hydrOXYzine PAMOATE 25 MG CAPSULE (FP) PO PRN (09:52)
[2023-02-02] MEDS: FENOFIBRIC ACID 135 MG CAP PO SCH (09:52)
[2023-02-02] MEDS: SUVOREXANT 10 MG TABLET PO PRN (21:23)
[2023-02-02] MEDS: ATORVASTATIN CA 40 MG TABLET (FP) PO SCH (21:24)
[2023-02-02] MEDS: THIAMINE HCL 100 MG TABLET (FP) PO SCH (21:24)
[2023-02-03] MEDS: DIVALPROEX SODIUM 500 MG TABLET E.C. PO SCH ×2 (10:06→21:11)
[2023-02-03] MEDS: LACTULOSE 20 GM/30 ML UDC (FOR ORAL USE ONLY) PO SCH ×2 (10:06→21:11)
[2023-02-03] MEDS: PRENATAL VITAMINS W/ FOLIC ACID TABLET (FP) PO SCH (10:06)
[2023-02-03] MEDS: FENOFIBRIC ACID 135 MG CAP PO SCH (10:06)
[2023-02-03] MEDS: RIFAXIMIN 550 MG TABLET PO SCH ×2 (10:06→21:11)
[2023-02-03] MEDS: NICOTINE 21 MG/24 HOURS TOPICAL PATCH TD SCH (10:08)
[2023-02-03] MEDS: hydrOXYzine PAMOATE 25 MG CAPSULE (FP) PO PRN (16:52)
[2023-02-03] MEDS: IBUPROFEN 400 MG TABLET (FP) PO PRN (16:52)
[2023-02-03] MEDS: ATORVASTATIN CA 40 MG TABLET (FP) PO SCH (21:12)
[2023-02-03] MEDS: THIAMINE HCL 100 MG TABLET (FP) PO SCH (21:12)
[2023-02-03] MEDS: SUVOREXANT 10 MG TABLET PO PRN (21:14)
[2023-02-04] MEDS: RIFAXIMIN 550 MG TABLET PO SCH ×2 (09:45→21:12)
[2023-02-04] MEDS: FENOFIBRIC ACID 135 MG CAP PO SCH (09:45)
[2023-02-04] MEDS: NICOTINE 21 MG/24 HOURS TOPICAL PATCH TD SCH (09:45)
[2023-02-04] MEDS: DIVALPROEX SODIUM 500 MG TABLET E.C. PO SCH ×2 (09:45→21:12)
[2023-02-04] MEDS: PRENATAL VITAMINS W/ FOLIC ACID TABLET (FP) PO SCH (09:45)
[2023-02-04] MEDS: hydrOXYzine PAMOATE 25 MG CAPSULE (FP) PO PRN ×2 (09:45→18:13)
[2023-02-04] MEDS: LACTULOSE 20 GM/30 ML UDC (FOR ORAL USE ONLY) PO SCH ×2 (09:47→21:11)
[2023-02-04] MEDS: IBUPROFEN 400 MG TABLET (FP) PO PRN (18:13)
[2023-02-04] MEDS: ATORVASTATIN CA 40 MG TABLET (FP) PO SCH (21:11)
[2023-02-04] MEDS: SUVOREXANT 10 MG TABLET PO PRN (21:12)
[2023-02-04] MEDS: THIAMINE HCL 100 MG TABLET (FP) PO SCH (21:12)
[2023-02-05 07:31] VITALS: RESP 18
[2023-02-05] MEDS: DIVALPROEX SODIUM 500 MG TABLET E.C. PO SCH ×2 (09:49→21:11)
[2023-02-05] MEDS: RIFAXIMIN 550 MG TABLET PO SCH ×2 (09:49→21:10)
[2023-02-05] MEDS: hydrOXYzine PAMOATE 25 MG CAPSULE (FP) PO PRN ×2 (09:49→21:10)
[2023-02-05] MEDS: FENOFIBRIC ACID 135 MG CAP PO SCH (09:49)
[2023-02-05] MEDS: LACTULOSE 20 GM/30 ML UDC (FOR ORAL USE ONLY) PO SCH ×2 (09:50→21:50)
[2023-02-05] MEDS: NICOTINE 21 MG/24 HOURS TOPICAL PATCH TD SCH (09:50)
[2023-02-05] MEDS: PRENATAL VITAMINS W/ FOLIC ACID TABLET (FP) PO SCH (09:50)
[2023-02-05] MEDS: IBUPROFEN 600 MG TABLET (FP) PO PRN (21:10)
[2023-02-05] MEDS: ATORVASTATIN CA 40 MG TABLET (FP) PO SCH (21:11)
[2023-02-05] MEDS: THIAMINE HCL 100 MG TABLET (FP) PO SCH (21:11)
[2023-02-05] MEDS: SUVOREXANT 10 MG TABLET PO PRN (21:11)
[2023-02-06] MEDS: NICOTINE 21 MG/24 HOURS TOPICAL PATCH TD SCH (09:50)
[2023-02-06] MEDS: RIFAXIMIN 550 MG TABLET PO SCH ×2 (09:50→21:11)
[2023-02-06] MEDS: hydrOXYzine PAMOATE 25 MG CAPSULE (FP) PO PRN ×2 (09:51→18:35)
[2023-02-06] MEDS: FENOFIBRIC ACID 135 MG CAP PO SCH (09:51)
[2023-02-06] MEDS: PRENATAL VITAMINS W/ FOLIC ACID TABLET (FP) PO SCH (09:51)
[2023-02-06] MEDS: LACTULOSE 20 GM/30 ML UDC (FOR ORAL USE ONLY) PO SCH ×2 (09:53→21:09)
[2023-02-06] MEDS: DIVALPROEX SODIUM 500 MG TABLET E.C. PO SCH ×2 (09:53→21:10)
[2023-02-06 11:11] LABS: POTASSIUM 4.8 mmol/L (3.5-5.1)
[2023-02-06 11:13] LABS: CALCIUM 9.3 mg/dL (8.5-10.1)
[2023-02-06 11:14] LABS: ALBUMIN 4.2 g/dl (3.4-5.0); BLOOD UREA NITROGEN 12.8 mg/dL (7-18)
[2023-02-06 11:17] LABS: CREATININE 1.1 mg/dL (0.55-1.3)
[2023-02-06 11:18] LABS: BILIRUBIN,TOTAL 0.4 mg/dL (0.2-1); TOT PROT 7.7 g/dl (6.4-8.2)
[2023-02-06 11:26] LABS: INR 1.03 (0.83-1.09)
[2023-02-06] MEDS: IBUPROFEN 600 MG TABLET (FP) PO PRN (18:35)
[2023-02-06] MEDS: ATORVASTATIN CA 40 MG TABLET (FP) PO SCH (21:09)
[2023-02-06] MEDS: THIAMINE HCL 100 MG TABLET (FP) PO SCH (21:10)
[2023-02-06] MEDS: SUVOREXANT 10 MG TABLET PO PRN (21:13)
[2023-02-07] MEDS: PRENATAL VITAMINS W/ FOLIC ACID TABLET (FP) PO SCH (09:48)
[2023-02-07] MEDS: LACTULOSE 20 GM/30 ML UDC (FOR ORAL USE ONLY) PO SCH ×2 (09:48→21:01)
[2023-02-07] MEDS: RIFAXIMIN 550 MG TABLET PO SCH ×2 (09:49→21:01)
[2023-02-07] MEDS: DIVALPROEX SODIUM 500 MG TABLET E.C. PO SCH ×2 (09:49→21:01)
[2023-02-07] MEDS: FENOFIBRIC ACID 135 MG CAP PO SCH (09:49)
[2023-02-07] MEDS: NICOTINE 21 MG/24 HOURS TOPICAL PATCH TD SCH (09:49)
[2023-02-07] MEDS: hydrOXYzine PAMOATE 25 MG CAPSULE (FP) PO PRN (17:58)
[2023-02-07] MEDS: IBUPROFEN 400 MG TABLET (FP) PO PRN (17:58)
[2023-02-07] MEDS: THIAMINE HCL 100 MG TABLET (FP) PO SCH (21:01)
[2023-02-07] MEDS: ATORVASTATIN CA 40 MG TABLET (FP) PO SCH (21:01)
[2023-02-07] MEDS: SUVOREXANT 10 MG TABLET PO PRN (21:01)
[2023-02-08] MEDS: PRENATAL VITAMINS W/ FOLIC ACID TABLET (FP) PO SCH (10:08)
[2023-02-08] MEDS: FENOFIBRIC ACID 135 MG CAP PO SCH (10:08)
[2023-02-08] MEDS: DIVALPROEX SODIUM 500 MG TABLET E.C. PO SCH ×2 (10:09→21:04)
[2023-02-08] MEDS: LACTULOSE 20 GM/30 ML UDC (FOR ORAL USE ONLY) PO SCH ×2 (10:09→21:03)
[2023-02-08] MEDS: NICOTINE 21 MG/24 HOURS TOPICAL PATCH TD SCH (10:09)
[2023-02-08] MEDS: hydrOXYzine PAMOATE 25 MG CAPSULE (FP) PO PRN (21:03)
[2023-02-08] MEDS: ATORVASTATIN CA 40 MG TABLET (FP) PO SCH (21:03)
[2023-02-08] MEDS: THIAMINE HCL 100 MG TABLET (FP) PO SCH (21:04)
[2023-02-08] MEDS: IBUPROFEN 600 MG TABLET (FP) PO PRN (21:04)
[2023-02-09] MEDS: LACTULOSE 20 GM/30 ML UDC (FOR ORAL USE ONLY) PO SCH ×2 (09:40→21:10)
[2023-02-09] MEDS: NICOTINE 21 MG/24 HOURS TOPICAL PATCH TD SCH (09:41)
[2023-02-09] MEDS: PRENATAL VITAMINS W/ FOLIC ACID TABLET (FP) PO SCH (09:41)
[2023-02-09] MEDS: FENOFIBRIC ACID 135 MG CAP PO SCH (09:41)
[2023-02-09] MEDS: DIVALPROEX SODIUM 500 MG TABLET E.C. PO SCH ×2 (09:43→21:10)
[2023-02-09] MEDS: IBUPROFEN 600 MG TABLET (FP) PO PRN (18:58)
[2023-02-09] MEDS: hydrOXYzine PAMOATE 25 MG CAPSULE (FP) PO PRN (18:58)
[2023-02-09] MEDS: THIAMINE HCL 100 MG TABLET (FP) PO SCH (21:10)
[2023-02-09] MEDS: ATORVASTATIN CA 40 MG TABLET (FP) PO SCH (21:10)
[2023-02-09] MEDS: SUVOREXANT 10 MG TABLET PO PRN (21:12)
[2023-02-10] MEDS: DIVALPROEX SODIUM 500 MG TABLET E.C. PO SCH ×2 (10:05→21:10)
[2023-02-10] MEDS: NICOTINE 21 MG/24 HOURS TOPICAL PATCH TD SCH (10:05)
[2023-02-10] MEDS: FENOFIBRIC ACID 135 MG CAP PO SCH (10:05)
[2023-02-10] MEDS: LACTULOSE 20 GM/30 ML UDC (FOR ORAL USE ONLY) PO SCH ×2 (10:05→22:07)
[2023-02-10] MEDS: PRENATAL VITAMINS W/ FOLIC ACID TABLET (FP) PO SCH (10:05)
[2023-02-10] MEDS: hydrOXYzine PAMOATE 25 MG CAPSULE (FP) PO PRN (10:07)
[2023-02-10] MEDS: SUVOREXANT 10 MG TABLET PO PRN (21:10)
[2023-02-10] MEDS: ATORVASTATIN CA 40 MG TABLET (FP) PO SCH (21:10)
[2023-02-10] MEDS: THIAMINE HCL 100 MG TABLET (FP) PO SCH (21:10)
[2023-02-11] MEDS: PRENATAL VITAMINS W/ FOLIC ACID TABLET (FP) PO SCH (09:38)
[2023-02-11] MEDS: NICOTINE 21 MG/24 HOURS TOPICAL PATCH TD SCH (09:39)
[2023-02-11] MEDS: LACTULOSE 20 GM/30 ML UDC (FOR ORAL USE ONLY) PO SCH ×2 (09:39→21:11)
[2023-02-11] MEDS: DIVALPROEX SODIUM 500 MG TABLET E.C. PO SCH ×2 (09:40→21:12)
[2023-02-11] MEDS: FENOFIBRIC ACID 135 MG CAP PO SCH (09:40)
[2023-02-11] MEDS: IBUPROFEN 400 MG TABLET (FP) PO PRN (17:39)
[2023-02-11] MEDS: SUVOREXANT 10 MG TABLET PO PRN (21:11)
[2023-02-11] MEDS: THIAMINE HCL 100 MG TABLET (FP) PO SCH (21:12)
[2023-02-11] MEDS: ATORVASTATIN CA 40 MG TABLET (FP) PO SCH (21:12)
[2023-02-12] MEDS: LACTULOSE 20 GM/30 ML UDC (FOR ORAL USE ONLY) PO SCH ×2 (09:50→21:05)
[2023-02-12] MEDS: PRENATAL VITAMINS W/ FOLIC ACID TABLET (FP) PO SCH (09:50)
[2023-02-12] MEDS: NICOTINE 21 MG/24 HOURS TOPICAL PATCH TD SCH (09:50)
[2023-02-12] MEDS: FENOFIBRIC ACID 135 MG CAP PO SCH (09:50)
[2023-02-12] MEDS: DIVALPROEX SODIUM 500 MG TABLET E.C. PO SCH ×2 (09:52→21:05)
[2023-02-12] MEDS ORDERED: ALBUTEROL SO4 HFA INHALER IH PRN (12:09)
[2023-02-12] MEDS: SUVOREXANT 10 MG TABLET PO PRN (21:04)
[2023-02-12] MEDS: ATORVASTATIN CA 40 MG TABLET (FP) PO SCH (21:04)
[2023-02-12] MEDS: THIAMINE HCL 100 MG TABLET (FP) PO SCH (21:05)
[2023-02-12] MEDS: IBUPROFEN 600 MG TABLET (FP) PO PRN (22:26)
[2023-02-13] MEDS: LACTULOSE 20 GM/30 ML UDC (FOR ORAL USE ONLY) PO SCH ×2 (09:53→21:06)
[2023-02-13] MEDS: PRENATAL VITAMINS W/ FOLIC ACID TABLET (FP) PO SCH (09:53)
[2023-02-13] MEDS: DIVALPROEX SODIUM 500 MG TABLET E.C. PO SCH ×2 (09:53→21:06)
[2023-02-13] MEDS: NICOTINE 21 MG/24 HOURS TOPICAL PATCH TD SCH (09:54)
[2023-02-13] MEDS: FENOFIBRIC ACID 135 MG CAP PO SCH (09:54)
[2023-02-13] MEDS: IBUPROFEN 600 MG TABLET (FP) PO PRN (17:39)
[2023-02-13] MEDS: ATORVASTATIN CA 40 MG TABLET (FP) PO SCH (21:06)
[2023-02-13] MEDS: THIAMINE HCL 100 MG TABLET (FP) PO SCH (21:06)
[2023-02-13] MEDS: SUVOREXANT 10 MG TABLET PO PRN (21:08)
[2023-02-13] MEDS: hydrOXYzine PAMOATE 25 MG CAPSULE (FP) PO PRN (23:01)
[2023-02-14] MEDS: PRENATAL VITAMINS W/ FOLIC ACID TABLET (FP) PO SCH (09:59)
[2023-02-14] MEDS: NICOTINE 21 MG/24 HOURS TOPICAL PATCH TD SCH (10:00)
[2023-02-14] MEDS: DIVALPROEX SODIUM 500 MG TABLET E.C. PO SCH ×2 (10:00→21:04)
[2023-02-14] MEDS: FENOFIBRIC ACID 135 MG CAP PO SCH (10:00)
[2023-02-14] MEDS: LACTULOSE 20 GM/30 ML UDC (FOR ORAL USE ONLY) PO SCH ×2 (10:00→21:04)
[2023-02-14] MEDS: ATORVASTATIN CA 40 MG TABLET (FP) PO SCH (21:04)
[2023-02-14] MEDS: THIAMINE HCL 100 MG TABLET (FP) PO SCH (21:04)
[2023-02-14] MEDS: SUVOREXANT 10 MG TABLET PO PRN (21:05)
[2023-02-15 07:07] VITALS: TEMP 97.6
[2023-02-15] MEDS: LACTULOSE 20 GM/30 ML UDC (FOR ORAL USE ONLY) PO SCH ×2 (09:59→21:12)
[2023-02-15] MEDS: NICOTINE 21 MG/24 HOURS TOPICAL PATCH TD SCH (10:00)
[2023-02-15] MEDS: DIVALPROEX SODIUM 500 MG TABLET E.C. PO SCH ×2 (10:00→21:12)
[2023-02-15] MEDS: FENOFIBRIC ACID 135 MG CAP PO SCH (10:00)
[2023-02-15] MEDS: PRENATAL VITAMINS W/ FOLIC ACID TABLET (FP) PO SCH (10:00)
[2023-02-15] MEDS: hydrOXYzine PAMOATE 25 MG CAPSULE (FP) PO PRN (16:57)
[2023-02-15] MEDS: ATORVASTATIN CA 40 MG TABLET (FP) PO SCH (21:12)
[2023-02-15] MEDS: THIAMINE HCL 100 MG TABLET (FP) PO SCH (21:12)
[2023-02-15] MEDS: IBUPROFEN 600 MG TABLET (FP) PO PRN (21:12)
[2023-02-15] MEDS: SUVOREXANT 10 MG TABLET PO PRN (21:15)
[2023-02-16] MEDS: PRENATAL VITAMINS W/ FOLIC ACID TABLET (FP) PO SCH (09:42)
[2023-02-16] MEDS: LACTULOSE 20 GM/30 ML UDC (FOR ORAL USE ONLY) PO SCH ×2 (09:42→21:04)
[2023-02-16] MEDS: DIVALPROEX SODIUM 500 MG TABLET E.C. PO SCH ×2 (09:43→21:04)
[2023-02-16] MEDS: FENOFIBRIC ACID 135 MG CAP PO SCH (09:43)
[2023-02-16] MEDS: NICOTINE 21 MG/24 HOURS TOPICAL PATCH TD SCH (09:44)
[2023-02-16] MEDS: SUVOREXANT 10 MG TABLET PO PRN (21:03)
[2023-02-16] MEDS: THIAMINE HCL 100 MG TABLET (FP) PO SCH (21:04)
[2023-02-16] MEDS: ATORVASTATIN CA 40 MG TABLET (FP) PO SCH (21:04)
[2023-02-17 06:52] VITALS: BP 107/53; PULSE 72
[2023-02-17] MEDS: FENOFIBRIC ACID 135 MG CAP PO SCH (09:43)
[2023-02-17] MEDS: NICOTINE 21 MG/24 HOURS TOPICAL PATCH TD SCH (09:43)
[2023-02-17] MEDS: DIVALPROEX SODIUM 500 MG TABLET E.C. PO SCH (09:43)
[2023-02-17] MEDS: PRENATAL VITAMINS W/ FOLIC ACID TABLET (FP) PO SCH (09:43)
[2023-02-17] MEDS: LACTULOSE 20 GM/30 ML UDC (FOR ORAL USE ONLY) PO SCH (09:44)
== END 2023-02-17 09:45 | disposition home or self-care (01) | DRG 772 ==
LOC: YASAS 17:10 → Y5N 17:12
PROVIDERS: ADMIT Allergy & Immunology; ATTEND Psychiatry & Neurology Pain Medicine
PROC: HZ42ZZZ Group Counseling for Substance Abuse Treatment, Cognitive-Behavioral (ICD-10-PCS; principal; 2023-01-20)
DX: F10.20 Alcohol dependence, uncomplicated (principal); F12.20 Cannabis dependence, uncomplicated; F17.210 Nicotine dependence, cigarettes, uncomplicated; F41.8 Other specified anxiety disorders; F43.10 Post-traumatic stress disorder, unspecified; E72.20 Disorder of urea cycle metabolism, unspecified; G47.00 Insomnia, unspecified; J45.20 Mild intermittent asthma, uncomplicated; Z86.59 Personal history of other mental and behavioral disorders; Z87.19 Personal history of other diseases of the digestive system
CPT/HCPCS: 36415; 80053; 80076; 82140; 82962; 85610; 86803